=== PATIENT | male | born 2000 | race Caucasian/White ===

== ENCOUNTER 2022-11-05 23:09 | Emergency (ER) | payer OTHER ==
[2022-11-05 23:14] VITALS: O2SAT 99
[2022-11-05] MEDS ORDERED: Fluor-I-Strip/Ful-Flo OP ONE (23:18)
[2022-11-05] MEDS ORDERED: TETRACAINE 0.5% STERI-UNIT SOL OP ONE (23:18)
[2022-11-05] MEDS ORDERED: Eye-Stream Solution ONE (23:19)
[2022-11-05] MEDS ORDERED: CLEOCIN 150 MG CAPSULE PO ONE (23:33)
[2022-11-05] MEDS ORDERED: Eye-Stream Solution OP ONE (23:34)
[2022-11-05] MEDS ORDERED: TETRACAINE 0.5% STERI-UNIT SOL OP STA (23:36)
[2022-11-05] MEDS ORDERED: CLEOCIN 150 MG CAPSULE ONE (23:39)
--- NOTE | 2022-11-05 23:39 | ERPHSYRPT ---
- History of Present Illness Time Seen by Provider: 11/05/22 23:13 Source: patient Exam Limitations: no limitations Patient Subjective Stated Complaint: lt eye pain, swelling Triage Nursing Assessment: Pt ambulated into ER, sig other at bedside. Pt c/o left eye pain, burning, redness that started at 12:00 today at work. 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 Pt denies any injury or knowing of anything that got into his eye. Pt's sclera of eye is pink in color, swelling noted under eye. Physician History: 22 years old male presented in the ER with chief complaint of left eye pain and swelling around which started around noon today. Patient reports gradually increasing swelling and watering of left eye. More swelling in the lower lid area. No difficulty movements of eyeball itself. No visual disturbance. Martin es any apparent injury/foreign body sensation. Up-to-date with tetanus. Timing/Duration: today, gradual onset, worse Location: left eye Severity: moderate Apparent Injury: no Associated Symptoms: itching, redness, eyelid swelling Visual Assistive Devices: None Chemical Exposure: No Trauma: No Welding Arc/Tanning Bed Exposure: No Allergies/Adverse Reactions: amoxicillin Adverse Reaction (Verified 11/05/22 23:14) Penicillins Adverse Reaction (Verified 11/05/22 23:14) Hx Tetanus, Diphtheria Vaccination/Date Given: Yes Hx Influenza Vaccination/Date Given: No Hx Pneumococcal Vaccination/Date Given: No Travel Risk - International Travel Have you traveled outside of the country in past 3 weeks: No - Coronavirus Screening Are you exhibiting any of the following symptoms?: No Close contact with a COVID-19 positive Pt in past 14-21 Days: No - Vaccine Status Have you recieved a Covid-19 vaccination: No - Review of Systems Constitutional: No Symptoms Eyes: Eye Pain, Eye Redness, Itchy, Tearing Ears, Nose, & Throat: No Symptoms Respiratory: No Symptoms Cardiac: No Symptoms Genitourinary Symptoms: No Symptoms Musculoskeletal: No Symptoms Skin: No Symptoms Neurological: No Symptoms Endocrine: No Symptoms Hematologic/Lymphatic: No Symptoms Immunological/Allergic: No Symptoms - Past Medical History Pertinent Past Medical History: No - Past Surgical History Past Surgical History: Yes Musculoskeletal: Orthopedic Surgery Other Surgical History: hand and elbow surgery - Social History Smoking Status: Current every day smoker How long have you smoked: 3 yrs Exposure to second hand smoke: No Drug Use: none Patient Lives Alone: No - Nursing Vital Signs Nursing Vital Signs: Initial Vital Signs Temperature 97.9 F 11/05/22 23:12 Pulse Rate 107 H 11/05/22 23:12 Respiratory Rate 20 11/05/22 23:12 Blood Pressure 138/95 11/05/22 23:12 O2 Sat by Pulse Oximetry 99 11/05/22 23:12 Pain Scale Pain Intensity 2 - Physical Exam General Appearance: no apparent distress, alert Vision Acuity Degree Evaluation Phase: Uncorrected Vision Acuity Right Eye: 20/30 Vision Acuity Left Eye: 20/30 Eye Exam: right eye: normal inspection, left eye: erythema (Lower lid), eyelid inflammation, bilateral eye: PERRL, EOMI Ears, Nose, Throat Exam: normal ENT inspection, TMs normal, pharynx normal, moist mucous membranes Neck Exam: normal inspection, non-tender, supple, full range of motion Respiratory Exam: normal breath sounds, lungs clear Cardiovascular Exam: regular rate/rhythm, normal heart sounds Extremity Exam: normal inspection, normal range of motion Neurologic: alert, oriented x 3, cooperative, electronics technician II-XII nml as tested Skin Exam: normal color SpO2 Interpretation: normal SpO2: 99 O2 Delivery: Room Air Ordered Tests: Medication Summary Discontinued Medications Generic Name Dose Route Start Last Admin Trade Name Vahid PRN Reason Stop Dose Admin Ceftriaxone Sodium 1,000 mg 11/05/22 23:49 Ceftriaxone Sodium 1000 Mg Inj Vial IM 11/05/22 23:50 STAT ONE Clindamycin HCl 300 mg 11/05/22 23:33 11/05/22 23:41 Clindamycin Hcl 150 Mg Capsule PO 11/05/22 23:34 300 mg STAT ONE Administration Clindamycin HCl Confirm 11/05/22 23:39 Clindamycin Hcl 150 Mg Capsule Administered 11/05/22 23:40 Dose 300 mg .ROUTE .STK-MED ONE Eye Irrigation Solution Confirm 11/05/22 23:19 Sodium/Potassium/Rom/Magnesium 30 Ml Eye Wash Administered 11/05/22 23:20 Dose 30 ml .ROUTE .STK-MED ONE Eye Irrigation Solution 15 ml 11/05/22 23:34 11/05/22 23:37 Sodium/Potassium/Rom/Magnesium 30 Ml Eye Wash OP 11/05/22 23:35 15 ml STAT ONE Administration Fluorescein Sodium Confirm 11/05/22 23:18 Fluorescein Sodium 1 Mg/Strip Strip Administered 11/05/22 23:19 Dose 1 mg OP .STK-MED ONE Tetracaine HCl Confirm 11/05/22 23:18 Tetracaine Hcl/Pf 4 Ml Bottle Administered 11/05/22 23:19 Dose 4 ml OP .STK-MED ONE Tetracaine HCl 4 ml 11/05/22 23:36 11/05/22 23:37 Tetracaine Hcl/Pf 4 Ml Bottle OP 11/05/22 23:37 4 ml STAT STA Administration - Progress Progress: unchanged Progress Note: 11/05/22 23:40 22 years old male presented in the ER with chief complaint of left eye pain and swelling around which started around noon today. Patient reports gradually increasing swelling and watering of left eye. More swelling in the lower lid area. No difficulty movements of eyeball itself. No visual disturbance. Denies any apparent injury/foreign body sensation. Up-to-date with tetanus. Patient has minimal conjunctival injection. Intact range of motion of eyeball. Has periorbital cellulitis. Started on clindamycin and Omnicef. Given a shot of Rocephin in here. Recommended Tylenol/ibuprofen as needed. We will also do Polytrim eyedrops. Outpatient ophthalmology/optometry follow-up recommended in the morning. Discussed signs symptoms of worsening needing return to ER which patient seems understanding. 11/05/22 23:52 Counseled pt/family regarding: diagnosis, need for follow-up Medical Desision Making - Risk of complications The pt has a mod risk of morbidity or mortality based on: Need for prescription drug management - Departure Departure Disposition: Home Clinical Impression: Periorbital cellulitis of left eye Condition: Stable Critical Care Time: No Instructions: Cellulitis around the eye Additional Instructions: Take Tylenol/ibuprofen as needed. Follow-up with optometry/ophthalmology for reevaluation in the morning. Return to ER for any worsening of swelling, difficulty movements of eyeball, visual disturbance etc. [address] [address] Prescriptions: Cefdinir 300 mg PO BID 7 Days #14 cap clindamycin HCL [Clindamycin HCl] 300 mg PO QID 7 Days #28 cap Polymyxin B Sulf/Trimethoprim [Polytrim Eye Drops] 2 drops OP QID 7 Days #10
[2022-11-05] MEDS ORDERED: Rocephin 1000 MG INJ IM ONE (23:49)
[2022-11-05] MEDS ORDERED: Rocephin 1000 MG INJ ONE ×2 (23:50→23:56)
[2022-11-06 00:11] VITALS: BP 141/74; PULSE 90
== END 2022-11-06 00:20 | disposition home or self-care (01) ==
LOC: ED 23:09
DX: L03.213 Periorbital cellulitis (principal); H57.12 Ocular pain, left eye; Z28.310 Unvaccinated for COVID-19; Z72.0 Tobacco use
CPT/HCPCS: 96372; 99283; J0696; A9270-GY